=== PATIENT | female | born 1940 | race Caucasian/White ===

== ENCOUNTER 2018-02-06 12:40 | Outpatient (CLI) | payer MEDICARE ==
--- NOTE | 2018-02-06 23:22 | ULT ---
LOWER EXTREMITY ARTERIAL EVALUATION USING DOPPLER WAVEFORM ANALYSIS AND SEGMENTAL LIMB PRESSURES: Examination of the right leg reveals mildly abnormal femoral waveforms with decrease in waveforms. M ost significantly between the popliteal, pedal vessels. Ankle-arm index is 0.58. Left lower extremity demonstrates fairly well preserved Doppler waveforms at the femoral, popliteal, posterior tibial and dorsalis pedis level with an ankle-arm index of 0.87. Toe-brachial index is dec reased on the right at 0.37 and a mildly abnormal in the left at 0.62. 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 It could be consistent with claudication in the right leg more than the left. Left lower extremity demonstrates mild disease, but fairly well preserved signals at the foot.
== END 2018-02-06 12:41 | disposition home or self-care (01) ==
LOC: ULT 12:40
PROVIDERS: ATTEND Family Medicine
DX: I73.9 Peripheral vascular disease, unspecified (principal)
CPT/HCPCS: 93922

== ENCOUNTER 2018-03-25 08:35 | Outpatient (CLI) | payer MEDICARE ==
--- NOTE | 2018-03-25 10:22 | ULT ---
RENAL DOPPLER ULTRASOUND: Date: 03-25-18 Comparison: None. History: Chronic kidney disease, hypertension. Technique: Multiplanar grayscale sonographic imaging of the kidneys and urinary bladder obtained. [place] al vasculature is assessed with color flow and spect analysis. FINDINGS: The right kidney measures 9.9 x 4.2 x 4.4 cm and demonstrates cortical thinning with no mass, hydrone phrosis or stone. Urinary bladder is grossly unremarkable. The left kidney measures 11.0 x 4.2 x 4.2 cm and demonstrates no evidence for renal mass, hydronephro sis, or stone. The resistive indices within the arcuate arteries measure up to 0.78 on the right and 0.70 on the lef t. Peak systolic velocity within the abdominal aorta at the level of the renal arteries is 108 cm/sec. P eak systolic velocity within the renal artery on the right is 65 cm/sec and on the left is 103 cm/sec for a renal artery/aortic ratio of 0.61 on the right and 0.95 on the left. IMPRESSION: No hemodynamically significant stenosis of the renal arteries on the basis of sonographic velocity cr iteria. POS: ETHEL
== END 2018-03-25 08:36 | disposition home or self-care (01) ==
LOC: BICULT 08:35
PROVIDERS: ATTEND Internal Medicine Nephrology
DX: I12.9 Hypertensive chronic kidney disease with stage 1 through stage 4 chronic kidney disease, or unspecified chronic kidney disease (principal); N18.3 Chronic kidney disease, stage 3 (moderate)
CPT/HCPCS: 76700; 76770

== ENCOUNTER 2020-10-10 16:06 | Emergency (ER) | payer MEDICARE, OTHER ==
[2020-10-10] MEDS ORDERED: Ketorolac Tromethamine 30 MG/ML VIAL ONE (19:10)
== END 2020-10-10 19:30 | disposition home or self-care (01) ==
LOC: ERS 16:06
DX: M16.11 Unilateral primary osteoarthritis, right hip (principal); M54.31 Sciatica, right side; E78.5 Hyperlipidemia, unspecified; E78.00 Pure hypercholesterolemia, unspecified; I10 Essential (primary) hypertension; Z87.19 Personal history of other diseases of the digestive system; Z79.899 Other long term (current) drug therapy
CPT/HCPCS: 96372; J1885